=== PATIENT | female | born 1940 | race Caucasian/White ===

== ENCOUNTER 2017-12-31 10:22 | Outpatient (CLI) | payer MEDICARE, OTHER, MEDICAID ==
[~2017-12-31 10:22] MED LIST: ADV50250 IH; ALBU18HF2 IH; ALPR-624 PO; CLOB15OI10 TP; COMIN IH; DESO15CR13; FAMO-1 PO; INSU100I12 SQ; KEN0.1O TP; LOP25T PO; METF500T7 PO; MIN5C PO; PRED10TA PO; TIOT18CA7 IH; VALS160T2 PO
== END 2017-12-31 23:59 | disposition home or self-care (01) ==
LOC: DIABETIC 10:22
PROVIDERS: ATTEND Internal Medicine
DX: E11.9 Type 2 diabetes mellitus without complications (principal); J44.9 Chronic obstructive pulmonary disease, unspecified; I10 Essential (primary) hypertension
CPT/HCPCS: G0108

== ENCOUNTER 2018-03-16 16:47 | Emergency (ER) | payer MEDICARE, OTHER, MEDICAID ==
[~2018-03-16] VITALS: Ht 149.9 cm; Wt 60.5 kg
[2018-03-16 19:44] VITALS: BP 190/114
== END 2018-03-16 19:46 | disposition home or self-care (01) ==
LOC: ER 16:47
DX: S60.222A Contusion of left hand, initial encounter (principal); I10 Essential (primary) hypertension; J44.9 Chronic obstructive pulmonary disease, unspecified; E11.9 Type 2 diabetes mellitus without complications; Z88.0 Allergy status to penicillin; Z88.2 Allergy status to sulfonamides; Z88.1 Allergy status to other antibiotic agents; Z88.5 Allergy status to narcotic agent; Z88.8 Allergy status to other drugs, medicaments and biological substances; Z90.49 Acquired absence of other specified parts of digestive tract; Z79.84 Long term (current) use of oral hypoglycemic drugs; Z79.4 Long term (current) use of insulin; Z79.899 Other long term (current) drug therapy; W22.8XXA Striking against or struck by other objects, initial encounter; Y93.89 Activity, other specified; Y92.89 Other specified places as the place of occurrence of the external cause; Y99.8 Other external cause status
CPT/HCPCS: 73130; 99284

== ENCOUNTER 2018-03-26 03:09 | Outpatient (CLI) | payer MEDICARE, OTHER, MEDICAID | END 2018-03-26 23:59 | disposition home or self-care (01) | LOC: DIABETIC 03:09 | PROVIDERS: ATTEND Internal Medicine | DX: E11.9 Type 2 diabetes mellitus without complications (principal); I10 Essential (primary) hypertension; J44.9 Chronic obstructive pulmonary disease, unspecified; Z79.4 Long term (current) use of insulin; Z79.84 Long term (current) use of oral hypoglycemic drugs; Z88.2 Allergy status to sulfonamides; Z88.5 Allergy status to narcotic agent; Z88.1 Allergy status to other antibiotic agents; Z88.8 Allergy status to other drugs, medicaments and biological substances; Z90.710 Acquired absence of both cervix and uterus | CPT/HCPCS: G0108 ==